=== PATIENT | male | born 1970 | race American Indian/Alaskan Native ===

== ENCOUNTER 2017-11-16 04:14 | Emergency (ER) | payer SELFPAY ==
--- NOTE | 2017-11-16 06:27 | XRay Report ---
FINAL REPORT EXAM: XR NECK SOFT TISSUE HISTORY: sore throat COMPARISONS: None. FINDINGS: AP and lateral views of the neck Straightening of the cervical spine with mild mid to lower cervical sequela of disc degeneration. Prevertebral soft tissues are within normal limits. Tracheal air column is patent. No hypopharyngeal ballooning. Incomplete evaluation of the lung apices is unremarkable. IMPRESSION: Soft tissues of the neck are within normal limits. Consider CT with contrast for further more sensitive evaluation.
[2017-11-16] MEDS ORDERED: BENADRYL IV ONE (08:51)
[2017-11-16] MEDS ORDERED: PEPCID IV ONE (08:51)
--- NOTE | 2017-11-16 08:55 | Emergency Department Report ---
ED ENT HPI - General Chief complaint: Sore Throat Stated complaint: THROAT PAIN Time Seen by Provider: 11/16/17 08:42 Source: patient Mode of arrival: Wheelchair Limitations: No Limitations - History of Present Illness Initial comments: 47-year-old male with past medical history of hypertension and intermittent throat swelling/pain presents to the Hospital complaining of pain to his throat since 3 AM. Patient feels like throat primarily the right side is swollen. Positive pain with swallowing. Mild shortness of breath. Patient is able to handle secretions. Denies fever or cough. Denies new exposure to medication. Apparently since patient's fourth episode of throat discomfort/swelling. 3 months ago he was seen and evaluated at [place] [facility] and they placed a camera down his throat while in the ER and did not report any abnormality. Patient improved with steroids. - Related Data Previous Rx's Medication Instructions Recorded Last Taken Type traMADol [Ultram] 50 mg PO Q6HR PRN #14 tablet 09/10/16 Unknown Rx Famotidine [Pepcid] 20 mg PO BID #10 tablet 11/16/17 Unknown Rx diphenhydrAMINE [Benadryl CAP] 25 mg PO Q8HR PRN #30 capsule 11/16/17 Unknown Rx predniSONE [Deltasone] 40 mg PO QDAY 5 Days tab 11/16/17 Unknown Rx Allergies Allergy/AdvReac Type Severity Reaction Status Date / Time No Known Allergies Allergy Verified 09/11/16 09:35 ED Dental HPI - General Chief complaint: Sore Throat Stated complaint: THROAT PAIN Time Seen by Provider: 11/16/17 08:42 Source: patient Mode of arrival: Wheelchair Limitations: No Limitations - Related Data Previous Rx's Medication Instructions Recorded Last Taken Type traMADol [Ultram] 50 mg PO Q6HR PRN #14 tablet 09/10/16 Unknown Rx Famotidine [Pepcid] 20 mg PO BID #10 tablet 11/16/17 Unknown Rx diphenhydrAMINE [Benadryl CAP] 25 mg PO Q8HR PRN #30 capsule 11/16/17 Unknown Rx predniSONE [Deltasone] 40 mg PO QDAY 5 Days tab 11/16/17 Unknown Rx Allergies Allergy/AdvReac Type Severity Reaction Status Date / Time No Known Allergies Allergy Verified 09/11/16 09:35 ED Review of Systems ROS: Stated complaint: THROAT PAIN Other details as noted in HPI Comment: All other systems reviewed and negative Other: Constitutional: No fevers chills Eyes: No eye pain visual changes ENT: As per HPI Neck: Denies pain Respiratory: Denies cough wheezing shortness of breath Cardiovascular: Denies chest pain, palpitations, syncope GI: Denies abdominal pain, nausea, vomiting, diarrhea : Denies dysuria, urinary frequency, or urgency Musculoskeletal: Denies back pain, joint swelling Skin: Denies rash, lesions, erythema Neurologic: Denies headache, numbness, weakness Psychiatric: Denies suicidal ideation, hallucinations ED Past Medical Hx - Past Medical History Previous Medical History?: Yes Hx Hypertension: Yes - Surgical History Past Surgical History?: Yes Hx Appendectomy: Yes - Social History Smoking Status: Never Smoker Substance Use Type: Alcohol - Medications Home Medications: Home Medications Medication Instructions Recorded Confirmed Last Taken Type traMADol [Ultram] 50 mg PO Q6HR PRN #14 tablet 09/10/16 Unknown Rx Famotidine [Pepcid] 20 mg PO BID #10 tablet 11/16/17 Unknown Rx diphenhydrAMINE [Benadryl CAP] 25 mg PO Q8HR PRN #30 capsule 11/16/17 Unknown Rx predniSONE [Deltasone] 40 mg PO QDAY 5 Days tab 11/16/17 Unknown Rx ED Physical Exam - General Limitations: No Limitations - Other Other exam information: General: No limitations, patient is alert in no acute distress Head exam: Atraumatic, normocephalic Eyes exam: Normal appearance ENT: Moist mucous membrane, normal oropharynx, no exudate, no edema, no stridor , no drooling Neck exam: Normal inspection, full range of motion, no meningismus nontender, no tender lymphadenopathy Respiratory exam: Clear to auscultation bilateral, no wheezes, rales, crackles Cardiovascular: Normal rate and rhythm, normal heart sounds Abdomen: Soft, nondistended, and nontender, with normal bowel sounds, no rebound, or guarding Extremity: Full range of motion normal inspection no deformity Back: Normal Inspection, full range of motion, no tenderness Neurologic: Alert, oriented x3, cranial nerves intact, no motor or sensory deficit Psychiatric: normal affect, normal mood Skin: Warm, dry, intact ED Course Vital Signs 11/16/17 11/16/17 11/16/17 05:00 05:13 06:13 Temperature 98.1 F Pulse Rate 89 83 Respiratory 18 18 Rate Blood Pressure 144/97 136/94 Blood Pressure 144/97 [Right] O2 Sat by Pulse 98 98 96 Oximetry 11/16/17 11/16/17 11/16/17 07:00 07:15 08:00 Temperature 98.0 F Pulse Rate 80 80 79 Respiratory 16 16 38 H Rate Blood Pressure 139/104 137/100 Blood Pressure 139/104 [Right] O2 Sat by Pulse 97 97 98 Oximetry ED Medical Decision Making - Lab Data Result diagrams: 11/16/17 08:54 11/16/17 08:54 Lab Results 11/16/17 11/16/17 11/16/17 Range/Units 08:54 08:54 Unknown WBC 4.2 L (4.5-11.0) K/mm3 RBC 5.31 H (3.65-5.03) M/mm3 Hgb 15.1 (11.8-15.2) gm/dl Hct 44.4 (35.5-45.6) % MCV 84 (84-94) fl MCH 28 (28-32) pg MCHC 34 (32-34) % RDW 13.3 (13.2-15.2) % Plt Count 265 (140-440) K/mm3 Lymph % (Auto) 28.1 (13.4-35.0) % Nelson % (Auto) 7.4 H (0.0-7.3) % Eos % (Auto) 3.1 (0.0-4.3) % Baso % (Auto) 0.6 (0.0-1.8) % Lymph # 1.2 (1.2-5.4) K/mm3 Nelson # 0.3 (0.0-0.8) K/mm3 Eos # 0.1 (0.0-0.4) K/mm3 Baso # 0.0 (0.0-0.1) K/mm3 Seg Neutrophils % 60.8 (40.0-70.0) % Seg Neutrophils # 2.6 (1.8-7.7) K/mm3 Sodium 138 (137-145) mmol/L Potassium 4.2 (3.6-5.0) mmol/L Chloride 101.2 (98-107) mmol/L Carbon Dioxide 24 (22-30) mmol/L Anion Gap 17 mmol/L BUN 10 (9-20) mg/dL Creatinine 0.9 (0.8-1.5) mg/dL Estimated GFR > 60 ml/min BUN/Creatinine Ratio 11 % Glucose 107 H (75-100) mg/dL Calcium 8.9 (8.4-10.2) mg/dL Group A Strep Rapid Negative (Negative) - Radiology Data Radiology results: report reviewed Read by adiologist Soft neck tissue x-ray: No acute findings CT neck IV contrast: Unremarkable, no mass, adenopathy, or inflammation. - Medical Decision Making Patient has sensation of airway swelling but no stridor, able to handle secretions, no shortness of breath. Patient also has a normal CT of the neck and x-ray of the soft tissues of the neck No signs of infection, abscess, or strep throat. Patient does have some relief after Solu-Medrol, Pepcid, and Benadryl. He will be discharged on medications for presumed allergic reaction ENT follow-up and PMD follow-up will be recommended. - Differential Diagnosis infection, allergic reaction, vocal cord Critical Care Time: No Critical care attestation.: If time is entered above; I have spent that time in minutes in the direct care of this critically ill patient, excluding procedure time. ED Disposition Clinical Impression: Sore throat Disposition: DC-01 TO HOME OR SELFCARE Is pt being admited?: No Does the pt Need Aspirin: No Condition: Stable Instructions: Pharyngitis (ED) Additional Instructions: Take the medication as prescribed. Return if symptoms worsen as indicated by your discharge instructions. Follow-up with the clinic/PMD and specialists provided Prescriptions: diphenhydrAMINE [Benadryl CAP] 25 mg PO Q8HR PRN #30 capsule PRN Reason: Allergy Symptoms Famotidine [Pepcid] 20 mg PO BID #10 tablet predniSONE [Deltasone] 40 mg PO QDAY 5 Days tab Referrals: ANAMIKA DUARTE MD [Primary Care Provider] - 3-5 Days (primary care doctor ) MINDA MILLER MD [Staff Physician] - 3-5 Days (ENT doctor) [facility] [Provider Group] - 3-5 Days (primary care clinic) Time of Disposition: 11:22
[2017-11-16 09:05] LABS: Basophils % (Auto) 0.6 % (0.0-1.8); Eosinophils # (Auto) 0.1 K/mm3 (0.0-0.4); Eosinophils % (Auto) 3.1 % (0.0-4.3); Hematocrit 44.4 % (35.5-45.6); Hemoglobin 15.1 gm/dl (11.8-15.2); Lymphocytes # (Auto) 1.2 K/mm3 (1.2-5.4); Lymphocytes % (Auto) 28.1 % (13.4-35.0); Mean Corpuscular HGB Conc 34 % (32-34); Mean Corpuscular Hemoglobin 28 pg (28-32); Mean Corpuscular Volume 84 fl (84-94); Monocytes # (Auto) 0.3 K/mm3 (0.0-0.8); Monocytes % (Auto) 7.4 % (0.0-7.3); Platelet Count 265 K/mm3 (140-440); Red Blood Count 5.31 M/mm3 (3.65-5.03); Red Cell Distribution Width 13.3 % (13.2-15.2)
[2017-11-16 09:19] LABS: BUN/Creatinine Ratio 11; Blood Urea Nitrogen 10 mg/dL (9-20); Calcium 8.9 mg/dL (8.4-10.2); Hemolysis Index 9
--- NOTE | 2017-11-16 10:06 | Cat Scan Report ---
CT NECK WITH CONTRAST: HISTORY: Throat swelling, difficulty swallowing. TECHNIQUE: Helical CT following IV contrast. Sagittal and coronal reformatted images. FINDINGS: The parotid and submandibular glands are normal. The carotid sheaths are intact. There is no evidence of adenopathy within the neck. The thyroid gland is normal. The glottic structures are normal. The airway is patent. Strap musculature is unremarkable. Hyoid bone and thyroid cartilage are intact. IMPRESSION: Unremarkable CT neck. Mass, adenopathy or inflammation is detected.
[2017-11-16 13:48] VITALS: BP 151/107
== END 2017-11-16 11:42 | disposition home or self-care (01) ==
LOC: ED 04:14
DX: J02.9 Acute pharyngitis, unspecified (principal); I10 Essential (primary) hypertension; Z90.49 Acquired absence of other specified parts of digestive tract
CPT/HCPCS: 36415; 70360; 70491; 80048; 85025; 87116; 87430; 96374; 96375; 99285; J1200; J2930; Q9967